=== PATIENT | female | born 1960 | race Caucasian/White ===

== ENCOUNTER 2016-10-02 15:33 | Emergency (ER) | payer OTHER ==
[2016-10-02 15:40] VITALS: BP 129/87; PULSE 85; TEMP 98; BMI 32.5
--- NOTE | 2016-10-02 16:39 | PDOC ---
History of Present Illness - General Chief Complaint: Pain Stated Complaint: FOOT PAIN Time Seen by Provider: 10/02/16 16:02 History Source: Patient - History of Present Illness Occurred: reports: this afternoon Severity: Yes: moderate Lower Extremity Pain Location: left: foot Method of Injury: Yes: direct blow Past History - Past Medical History Allergies/Adverse Reactions: Allergies Allergy/AdvReac Type Severity Reaction Status Date / Time Penicillins AdvReac Severe Rash Verified 10/02/16 15:40 Home Medications: Ambulatory Orders Cholecalciferol (Vitamin D3) [Vitamin D3] 2,000 unit PO DAILY 04/30/16 Folic Acid 0.8 mg PO DAILY 04/30/16 Multivitamins [Multivit ([facility])] 1 tab PO DAILY 04/30/16 Ascorbic Acid [Vitamin C -] 250 mg PO DAILY #30 tablet 05/02/16 Ferrous Sulfate [Feosol] 325 mg PO DAILY #30 tablet 05/02/16 Pantoprazole Sodium [Protonix -] 40 mg PO DAILY #30 tablet.ec 05/02/16 Asthma: Yes - Surgical History Abdominal Surgery: Yes (HERNIA) Appendectomy: Yes - Psycho/Social/Smoking Cessation Hx Anxiety: No Suicidal Ideation: No Smoking Status: No Smoking History: Never smoked Number of Cigarettes Smoked Daily: 0 Information on smoking cessation initiated: No Hx Alcohol Use: No Drug/Substance Use Hx: No Substance Use Type: None Hx Substance Use Treatment: No Review of Systems - Review of Systems Musculoskeletal: Yes: Joint Pain, Joint Swelling *Physical Exam - Vital Signs Last Vital Signs Temp Pulse Resp BP Pulse Ox 98 F 85 18 129/87 98 10/02/16 15:36 10/02/16 15:36 10/02/16 15:36 10/02/16 15:36 10/02/16 15:36 - Physical Exam General Appearance: Yes: Appropriately Dressed. No: Apparent Distress HEENT: positive: Normal Voice Neck: positive: Supple Respiratory/Chest: negative: Respiratory Distress Extremity: positive: Tender, Swelling (localized swelling w/ ttp over L 3rd MTP J, +deformity to L 3rd digit) Integumentary: positive: Dry, Warm Neurologic: positive: Fully Oriented, Alert, Normal Mood/Affect ED Treatment Course - RADIOLOGY Radiology Studies Ordered: Category Date Time Status FOOT-LEFT [RAD] Stat Radiology 10/02/16 16:25 Ordered Medical Decision Making - Medical Decision Making 10/02/16 16:34 55 yo F, no sig hx, here w/ L foot pain and swelling after striking foot against door this afternoon. Able to bear weight but painful See exam L foot injury w/ deformity to L 3rd digit R/o fx -pain control -XR 10/02/16 17:24 Displaced fx of proximal phalanx of L 3rd digit. Will reduce and consult ortho for follow up 10/02/16 18:19 No reduction on post reduction film despite multiple attempts at reduction s/p digital block in ED. Toe bhargav taped and ortho shoe placed. Case d/w ortho, states pt can f/u next week *DC/Admit/Observation/Transfer Diagnosis at time of Disposition: Toe fracture, left Qualifiers: Encounter type: initial encounter Toe: unspecified toe Fracture type: closed Fracture alignment: displaced Qualified Code(s): S92.912A - Unspecified fracture of left toe(s), initial encounter for closed fracture - Discharge Dispostion Disposition: HOME Condition at time of disposition: Good - Referrals Referrals: Terri Villarreal MD [Primary Care Provider] - Taras Latham MD [Staff Physician] - - Patient Instructions Printed Discharge Instructions: Toe Fracture Additional Instructions: Please follow up with orthopedics next week Tuesday Take tylenol as needed
[2016-10-02] MEDS ORDERED: ACETAMINOPHEN 325 MG TABLET (FP) PO ONE (17:29)
[2016-10-02] MEDS ORDERED: ACETAMINOPHEN 325 MG TABLET (FP) ONE (17:32)
[2016-10-02] MEDS ORDERED: LIDOCAINE HCL 1%, 10 MG/ML (20ML VIAL) ONE (17:43)
== END 2016-10-02 19:06 | disposition home or self-care (01) ==
LOC: JERFT 15:33
PROC: 0QSRXZZ Reposition Left Toe Phalanx, External Approach (ICD-10-PCS; principal; 2016-10-02)
DX: S92.512A Displaced fracture of proximal phalanx of left lesser toe(s), initial encounter for closed fracture (principal); W22.8XXA Striking against or struck by other objects, initial encounter; Y93.89 Activity, other specified; Y92.89 Other specified places as the place of occurrence of the external cause
CPT/HCPCS: 28515; 73630-TC-LT; 99281-25

== ENCOUNTER → 2017-09-22 | Day surgery (SDC) | payer OTHER ==
--- NOTE | 2017-09-26 14:01 | PATH ---
Surgical Pathology Report Patient Name: HENRRY MAO [facility]. Rec. #: [id number] /Age/Gender: 1960 (Age: 56) / F Account: [id number] Location: [facility], [place] Taken: 09/22/2017 Received: 09/22/2017 Reported: 09/26/2017 Physicians: Gonzalo Elena M.D. Specimen(s) Received A: LEFT BREAST SPECIMEN WITH CALCIFICATIONS B: LEFT BREAST SPECIMEN WITHOUT CALCIFICATIONS Clinical History Nonpalpable lesion Mammographic findings: Microcalcification, suspicious Final Diagnosis A. LEFT BREAST, WITH CALCIFICATIONS, BIOPSY: BREAST TISSUE WITH USUAL DUCTAL HYPERPLASIA, APOCRINE METAPLASIA, AND CALCIFICATIONS (CALCIUM OXALATE). B. LEFT BREAST, WITHOUT CALCIFICATIONS, BIOPSY: BREAST TISSUE WITH FIBROSIS. Electronically Signed Araceli Martinez M.D. Gross Description A. Received in formalin labeled "left breast with calcifications," are 5 fagan-yellow, cylindrical portions of fibroadipose tissue ranging from 1.0-2.7 cm in length and averaging 0.2 cm in diameter. The specimens are submitted in toto in one cassette. B. Received in formalin labeled "left breast without calcifications," are 4 fagan-yellow, cylindrical portions of fibroadipose tissue ranging from 2.4-4.2 cm in length and averaging 0.3 cm in diameter. The specimens are submitted in toto in one cassette. Time to formalin fixation: 5 minutes Total formalin fixation time: Approximately 8 hours. /09/22/2017 saudi09/22/2017
== END | disposition home or self-care (01) ==
LOC: FMAMMOTONE 08:56
PROVIDERS: ATTEND Obstetrics & Gynecology
PROC: 0HBU3ZX Excision of Left Breast, Percutaneous Approach, Diagnostic (ICD-10-PCS; principal; 2017-09-22)
DX: N60.12 Diffuse cystic mastopathy of left breast (principal); R92.1 Mammographic calcification found on diagnostic imaging of breast; N60.82 Other benign mammary dysplasias of left breast; N64.89 Other specified disorders of breast
CPT/HCPCS: 19081; 87899; 88305-TC; A4648

== ENCOUNTER 2018-03-19 08:58 | Emergency (ER) | payer OTHER ==
[2018-03-19 09:03] VITALS: BP 143/88; PULSE 83; TEMP 98.8; BMI 33.1
--- NOTE | 2018-03-19 09:08 | PDOC ---
Attending Attestation - Resident Resident Name: Rox Butler - ED Attending Attestation I have performed the following: I have examined & evaluated the patient, The case was reviewed & discussed with the resident, I agree w/resident's findings & plan, Exceptions are as noted - HPI HPI: 03/19/18 10:08 Patient stubbed her toe. Pain and swelling in the left fifth toe for approximately one week. No skin injury. No fever/chills or other sign of infection - Physicial Exam PE: 03/19/18 10:09 Swelling of the left fifth toe, diffuse, skin intact, no significant erythema or warmth which would suggest infection. There may be a minor degree of rotation , but this could certainly be due to swelling. There is no significant deformity - Medical Decision Making 03/19/18 10:10 X-ray: Comminuted fracture of the diaphysis of the proximal phalanx, fifth toe, left. No angulation. Possible rotation. Impression: Toe fracture Plan: Toe was bhargav taped for comfort. Rest ice and elevation was recommended. Follow-up orthopedist. Patient fully ambulatory without significant limp to follow-up as directed.
--- NOTE | 2018-03-19 09:48 | PDOC ---
History of Present Illness - General Chief Complaint: Injury Stated Complaint: left small toe injury Time Seen by Provider: 03/19/18 09:02 History Source: Patient Exam Limitations: No Limitations - History of Present Illness Initial Comments: 03/19/18 10:07 This is a 57 year old female, who presents with left fifth toe pain x1 week. 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 At first toe was black and blue. Today, with redness, swelling, warmth. She is able to walk without difficulty and able to move all toes. Denies fever, chills, skin abrasion or break down, no previous skin infections in the past. She has broken the 2nd, 3rd and 4th left toes in the past with similar symptoms. PMHx:breast calcification, h. pylori, hiatal hernia, GERD PSX: none Social hx: health aide, , three children, denies tobacco, alcohol, drug use Allergies: penicillin, rxn hives Past History - Past Medical History Allergies/Adverse Reactions: Allergies Allergy/AdvReac Type Severity Reaction Status Date / Time Penicillins AdvReac Severe Rash Verified 03/19/18 09:00 Home Medications: Ambulatory Orders Cholecalciferol (Vitamin D3) [Vitamin D3] 2,000 unit PO DAILY 04/30/16 Folic Acid 0.8 mg PO DAILY 04/30/16 Multivitamins [Multivit ([facility] Form[facility])] 1 tab PO DAILY 04/30/16 Ferrous Sulfate [Feosol] 325 mg PO DAILY #30 tablet 05/02/16 Asthma: Yes COPD: No - Surgical History Abdominal Surgery: Yes (HERNIA) Appendectomy: Yes - Suicide/Smoking/Psychosocial Hx Smoking Status: No Smoking History: Never smoked Number of Cigarettes Smoked Daily: 0 Hx Alcohol Use: No Drug/Substance Use Hx: No Substance Use Type: None Hx Substance Use Treatment: No Review of Systems - Review of Systems Able to Perform ROS?: Yes Is the patient limited Amharic proficient: Yes Constitutional: No: Chills, Diaphoresis, Fever, Night Sweats Respiratory: No: Cough, Shortness of Breath, Wheezing Cardiac (ROS): Yes: Edema (trace edema when standing all day). No: Chest Pain, Irregular Heart Rate, Lightheadedness ABD/GI: No: Abdominal Distended, Constipated, Diarrhea, Nausea, Vomiting Musculoskeletal: No: Back Pain, Gout, Joint Pain, Muscle Weakness, Joint Stiffness Integumentary: Yes: Bruising, Change in Color, Erythema, Other (left fifth toe pain , swelling, redness, bruise). No: Change in Hair/Nails, Pruritus, Rash Neurological: No: Headache, Numbness, Paresthesia, Unsteady Gait *Physical Exam - Vital Signs Last Vital Signs Temp Pulse Resp BP Pulse Ox 98.8 F 83 18 143/88 99 03/19/18 09:01 03/19/18 09:01 03/19/18 09:01 03/19/18 09:01 03/19/18 09:01 - Physical Exam General Appearance: Yes: Appropriately Dressed Respiratory/Chest: positive: Lungs Clear, Normal Breath Sounds Cardiovascular: positive: Regular Rhythm, Regular Rate Musculoskeletal: negative: Decreased Range of Motion Extremity: positive: Normal Capillary Refill, Normal Range of Motion, Tender, Pedal Edema, Swelling, Erythema, Inflammation, Other (left fifth toe with edema , erythema, ecchymosis, ROM intact, no abrasion; toe nail bed intact; synovial cyst on dorsum of left foot). negative: Calf Tenderness Integumentary: positive: Other (see extremity ) Neurologic: positive: Fully Oriented, Alert, Normal Mood/Affect Medical Decision Making - Medical Decision Making 03/19/18 10:25 This is a 57 year old female who presents with left fifth toe pain after injury to area last week. Left foot xray reveals fifth toe fracture. #Toe fracture: -bhargav tap affected to to fourth left toe -tyelenol or motrin for pain -rest, ice, elevate -dc home with these instructions and to return if fever, worsening erythema/pain /swelling. DC with orthopedic referral. *DC/Admit/Observation/Transfer Diagnosis at time of Disposition: Fracture Toe fracture, left Qualifiers: Toe: lesser toe - Discharge Dispostion Disposition: HOME Condition at time of disposition: Stable Decision to Admit order: No - Referrals Referrals: Taras Latham MD [Staff Physician] - - Patient Instructions Additional Instructions: Reina Rondon, you have a fractured toe, seen on xray. You can continue to wrap your toe, as shown today, if this is comfortable for you. Continue to use Tylenol or Motrin for pain, intermittent icing of area, elevate and rest. We have provided you with an orthopedic doctor information if necessary. Please return if you fell your symptoms are worsening. - Post Discharge Activity
== END 2018-03-19 10:19 | disposition home or self-care (01) ==
LOC: FER 08:58
PROC: 2W3VXYZ Immobilization of Left Toe using Other Device (ICD-10-PCS; principal; 2018-03-19)
DX: S92.515A Nondisplaced fracture of proximal phalanx of left lesser toe(s), initial encounter for closed fracture (principal); W22.01XA Walked into wall, initial encounter; Y93.89 Activity, other specified; Y92.89 Other specified places as the place of occurrence of the external cause
CPT/HCPCS: 73660-TC-LT-FY; 99282-25

== ENCOUNTER 2020-05-16 12:54 | Emergency (ER) | payer OTHER | END 2020-05-16 13:40 | disposition home or self-care (01) | LOC: JVIRT 12:54 | DX: Z20.822 Contact with and (suspected) exposure to COVID-19 (principal) | CPT/HCPCS: C9803; Q3014-GT; U0003 ==